=== PATIENT | female | born 2000 | race Caucasian/White ===

== ENCOUNTER 2025-10-05 19:46 | Emergency (ER) | payer OTHER ==
[~2025-10-05] VITALS: Ht 165.1 cm; Wt 63.6 kg
[2025-10-05 19:52] VITALS: TEMP 98.2
[2025-10-05 20:50] LABS: APPEARANCE,URINE CLEAR (CLEAR); GLUCOSE, URINE (UA) NEGATIVE (NEGATIVE); LEUKOCYTE ESTERASE ,URINE LARGE (NEGATIVE); NITRATE,URINE NEGATIVE (NEGATIVE); OCCULT BLOOD,URINE NEGATIVE (NEGATIVE); SPECIFIC GRAVITIY, URINE 1.018 (1.003-1.030)
[2025-10-05 21:30] VITALS: BP 115/71; PULSE 81; RESP 16; O2SAT 100
[2025-10-05] MEDS ORDERED: ACET-2247 PO (21:30)
[2025-10-05] MEDS ORDERED: DOXY-354 PO (21:30)
[2025-10-05] MEDS ORDERED: CEPHALEXIN MONOHYDRATE 500 MG CAPSULE PO ONE (21:30)
[2025-10-05] MEDS ORDERED: IBUP-1492 PO (21:30)
[2025-10-05] MEDS ORDERED: CEFP200T12 PO (21:30)
[2025-10-05] MEDS: IBUPROFEN 600 MG TABLET PO ONE (21:36)
[2025-10-05] MEDS: LIDOCAINE/PF 1% 2 ML VIAL IM ONE (21:36)
[2025-10-05] MEDS: CefTRIAXone SODIUM 1 GM/VIAL IM ONE (21:36)
[2025-10-05] MEDS: DOXYCYCLINE HYCLATE 100 MG TABLET PO ONE (21:36)
[2025-10-05] MEDS: ACETAMINOPHEN 325 MG TABLET PO ONE (21:36)
== END 2025-10-05 21:44 | disposition home or self-care (01) ==
LOC: EMS 19:46
DX: N39.0 Urinary tract infection, site not specified (principal); N89.8 Other specified noninflammatory disorders of vagina
CPT/HCPCS: 99284; 81001; 84703; 87086; 87491; 87591; 96372; J0696; J3490